=== PATIENT | male | born 1990 | race Caucasian/White ===

== ENCOUNTER 2021-10-27 12:29 | Outpatient (CLI) | payer SELFPAY ==
--- NOTE | 2021-10-27 12:52 | CT_ITS ---
STUDY: CT FACIAL BONES WITHOUT CONTRAST REASON FOR EXAM: Male, 31 years old. SINUSITIS RADIATION DOSAGE (If Supplied By Facility): CTDIvol = ( 28.14 ) mGy, DLP = ( 767.30 ) mGycm TECHNIQUE: The patient was scanned in a multi detector CT scanner. Sagittal and coronal images were reconstructed. Individualized dose optimization techniques were used for this CT. COMPARISON: None. FINDINGS: Normal soft tissue structures. Normal orbital sams and orbital contents. Normal nasal bones and anterior nasal spine. Normal facial bones. There is no demonstrated fracture. Soft tissue opacification of the left maxillary sinus. Soft tissue protrudes through the left posteromedial complex into the left nasal cavity as well as the left ethmoid sinus suggestive of polyposis. Mucosal thickening of the right ethmoid sinus. There is a 1 cm polyp or retention cyst at the base of the right maxillary sinus. The sphenoid sinus and frontal sinus are clear. CT/Sinus/Facial Bone IMPRESSION: Soft tissue opacification of the left maxillary sinus with extension of the soft tissue into the left os medial complex extending into the left ethmoid sinus and left nasal cavity suggestive of polyposis. Mild degree of mucosal thickening of the right ethmoid sinus with a small polyp or retention cyst in the inferior aspect of the right maxillary sinus. Electronically Signed: Hilario Bueno MD at 13:16 EST , Service support ,
== END 2021-10-27 23:59 | disposition short-term general hospital (02) ==
PROVIDERS: PCP Family Medicine; Referring Provider Otolaryngology; Visit Provider Otolaryngology
DX: J32.9 Chronic sinusitis, unspecified (principal)
CPT/HCPCS: 70486

== ENCOUNTER 2021-10-31 15:11 | Outpatient (CLI) | payer SELFPAY | END 2021-10-31 23:59 | disposition short-term general hospital (02) | LOC: LABSPEC 15:13 | PROVIDERS: PCP Family Medicine; Visit Provider Otolaryngology | DX: U07.1 COVID-19 (principal) | CPT/HCPCS: 87635; U0003; U0005 ==

== ENCOUNTER 2021-11-26 17:23 | Outpatient (CLI) | payer SELFPAY | END 2021-11-26 23:59 | disposition home or self-care (01) | PROVIDERS: PCP Family Medicine; Visit Provider Otolaryngology | DX: Z03.818 Encounter for observation for suspected exposure to other biological agents ruled out (principal) | CPT/HCPCS: 87635; U0003; U0005 ==